=== PATIENT | male | born 1950 | race African-American/Black ===

== ENCOUNTER 2017-12-24 21:21 | Emergency (ER) | payer OTHER ==
[~2017-12-24] VITALS: Ht 168.9 cm; Wt 76.0 kg
[2017-12-24] MEDS ORDERED: CYCLOBENZAPRINE 10MG TABLET PO ONE (23:00)
[2017-12-24] MEDS ORDERED: HYDROCODONE/ACETAMINOPHEN 5/325MG TABLET PO ONE (23:00)
[2017-12-24 23:09] VITALS: BP 136/84
== END 2017-12-25 00:09 | disposition home or self-care (01) ==
LOC: ER 21:21
DX: S46.012A Strain of muscle(s) and tendon(s) of the rotator cuff of left shoulder, initial encounter (principal); I10 Essential (primary) hypertension; X58.XXXA Exposure to other specified factors, initial encounter; Y93.89 Activity, other specified; Y92.89 Other specified places as the place of occurrence of the external cause; Y99.8 Other external cause status
CPT/HCPCS: 99283

== ENCOUNTER 2020-01-21 15:39 | Emergency (ER) | payer OTHER ==
[~2020-01-21] VITALS: Ht 162.6 cm; Wt 75.0 kg
[2020-01-21 15:41] VITALS: BP 122/82
[2020-01-21] MEDS ORDERED: FLUORESCEIN SODIUM 1MG/STRIP LEFTEYE ONE (17:00)
[2020-01-21] MEDS ORDERED: TETRACAINE 0.5% OPHTH DROPS 4ML LEFTEYE ONE (17:00)
[2020-01-21] MEDS ORDERED: IBUPROFEN 600MG TABLET PO ONE (17:30)
== END 2020-01-21 17:27 | disposition home or self-care (01) ==
LOC: ER 15:39
DX: S05.02XA Injury of conjunctiva and corneal abrasion without foreign body, left eye, initial encounter (principal); Y93.G3 Activity, cooking and baking; Y92.030 Kitchen in apartment as the place of occurrence of the external cause
CPT/HCPCS: 99283

== ENCOUNTER 2020-09-08 18:55 | Emergency (ER) | payer OTHER ==
[~2020-09-08] VITALS: Ht 172.7 cm; Wt 67.0 kg
[2020-09-08] MEDS ORDERED: KETOROLAC 60MG/2ML VIAL IM ONE (21:15)
[2020-09-08 22:08] VITALS: BP 160/87
== END 2020-09-08 22:09 | disposition home or self-care (01) ==
LOC: ER 20:19
DX: M25.511 Pain in right shoulder (principal); M25.512 Pain in left shoulder
CPT/HCPCS: 96372; 99283; J1885